=== PATIENT | male | born 1990 | race Caucasian/White ===

== ENCOUNTER 2018-08-23 14:23 | Inpatient (IN) ==
[2018-08-23] MEDS ORDERED: Ketorolac Inj 30 MG/ML (IVP) Vial IV.PUSH ONE (17:01)
[2018-08-23] MEDS ORDERED: Sod Chloride 0.9% Inj 1,000 ML IV.SIG ONE (17:01)
--- NOTE | 2018-08-23 17:04 | ED ---
HPI General Chief complaint: Skin/Abscess/Foreign Body Stated complaint: swollen right jaw Time Seen by Provider: 08/23/18 16:47 Source: patient Mode of arrival: ambulatory Limitations: no limitations History of Present Illness HPI narrative: 28-year-old male presents to the emergency department with complaint of right lower jaw swelling since . He was seen at [facility] on Wednesday and was prescribed penicillin and tramadol for what he was told he had a dental abscess. He says his symptoms have worsened and have not gotten better. Denies vomiting. Reports fever of what he thinks was 101.0 last night. No fever today. Denies sore throat, difficulty swallowing, unusual drooling. Rates pain 10/10. Pain is constant. Has been taking tramadol and Tylenol with no relief of symptoms. No known relieving factors. Denies significant past medical history. Has not seen a dentist. Does not have a dentist. No known allergies. Primary care provider is Dr. Meng. Has no other medical complaints. No other modifying factors or associated signs and symptoms. Related Data Home Medications Medication Instructions Recorded Confirmed No Known Home Medications 08/23/18 08/23/18 Allergies Allergy/AdvReac Type Severity Reaction Status Date / Time No Known Allergies Allergy Verified 08/23/18 14:43 [facility] Medical History Medical History Patient denies medical problems (Acute) Surgical History Surgical History No history of previous surgery (Acute) Social History Social History Substance History: No History of Abuse Smoking Status: Never smoker How Often Do You Have a Drink Containing Alcohol: 2 to 4 times a month Recent Travel in [facility] within the Last 8 Weeks: No Recent Out of Country Travel within the Last 8 Weeks: No Immunization History Tetanus Immunization: Unsure Exam Narrative Exam Narrative: GENERAL: Well-nourished, well-developed male patient, in no acute distress; afebrile, nontoxic-appearing SKIN: Warm and dry. HEAD: Atraumatic. Normocephalic. Right lower mandibular facial edema; without erythema; with tenderness on palpation. No lymphadenopathy. EYES: Pupils equal and round. No scleral icterus. No injection or drainage. ENT: Mucosa pink and moist. No erythema or exudates. No uvular edema. No uvular , palatal, or tonsillar deviation. Airway patent. EARS: Bilateral pinnae and external canals appear within normal limits. Bilateral tympanic membranes without erythema, dullness or perforation. MOUTH: Mucous membranes moist, no lesions, tongue and gums appear normal. Good dentition throughout. Surrounding gingiva is without erythema, edema, drainage. No obvious abscess noted. Positive trismus; patient unable to open jaw completely. NECK: Trachea midline. No lymphadenopathy. CARDIOVASCULAR: Regular rate. RESPIRATORY: No accessory muscle use. GASTROINTESTINAL: Flat. MUSCULOSKELETAL: No obvious deformities. No clubbing. No cyanosis. No edema. NEUROLOGICAL: Awake and alert. Oriented 3. No obvious cranial nerve deficits. Motor grossly within normal limits. Normal speech. PSYCHIATRIC: Appropriate mood and affect; insight and judgment normal. Course Initial Documented Vital Signs Temperature 98.5 F 08/23/18 14:27 Pulse Rate 85 08/23/18 14:27 Respiratory Rate 14 08/23/18 14:27 Blood Pressure 146/97 H 08/23/18 14:27 Pulse Oximetry 98 08/23/18 14:27 Last Documented Vital Signs Temperature 98.5 F 08/23/18 14:27 Pulse Rate 72 08/23/18 19:18 Respiratory Rate 18 08/23/18 19:18 Blood Pressure 131/76 08/23/18 19:18 Pulse Oximetry 100 08/23/18 19:18 Sign Out Sign Out Data: Patient Sign Out occurred on 08/23/18 at 19:06. Patient's care was discussed, and care was transferred from ELAINE Dinero to GREYSON Alvarez. Sign Out Comment: CT neck pending Last updated by Estrella Nieves ARNP at 08/23/18 18:59 Post-Handoff Eval: This patient was signed out to me pending CT imaging. Briefly this is a 28-year -old otherwise healthy male who presents with right-sided facial swelling for 5 days. He was started on penicillin 4 days ago at an outside emergency room and symptoms have persisted. Lab work is unremarkable. CT face reveals a 2.3 cm right-sided mandibular abscess. IV Decadron has been ordered. At this point time the plan is to admit the patient for IV antibiotic therapy. Medical Decision Making MDM Narrative Medical decision making narrative: 28-year-old male with right lower mandibular facial swelling. He was seen at [facility] on Wednesday and was given penicillin and was told he had a dental abscess. His symptoms have worsened. Positive for trismus. Patient discussed with Dr. Crain and plan of care discussed. CBC, BMP, coags, CT soft tissue neck, IV fluid bolus, Toradol, clindamycin 600 mg IV ordered. 1840: CBC, BMP unremarkable. Coags unremarkable. Medical Screen Exam Complete: Yes Emergency Medical Condition: Yes Differential Diagnosis Differential Diagnosis: Dental abscess, abscess of neck, Lab Data Result diagrams: 08/23/18 17:13 08/23/18 17:13 Lab Results 08/23/18 08/23/18 08/23/18 Range/Units 17:13 17:13 17:13 WBC 8.1 (4.0-11.0) th/mm3 RBC 5.78 (4.50-5.90) mil/mm3 Hgb 16.8 (13.0-17.0) gm/dL Hct 49.8 (39.0-51.0) % MCV 86.2 (80.0-100.0) fL MCH 29.0 (27.0-34.0) pg MCHC 33.6 (32.0-36.0) % RDW 13.7 (11.6-17.2) % Plt Count 279 (150-450) th/mm3 MPV 7.3 (7.0-11.0) fL Neut % (Auto) 66.1 (16.0-70.0) % Lymph % (Auto) 24.6 (9.0-44.0) % Trigg % (Auto) 7.5 (0.0-8.0) % Eos % (Auto) 1.1 (0.0-4.0) % Baso % (Auto) 0.7 (0.0-2.0) % Neut # (Auto) 5.3 (1.8-7.7) th/mm3 Lymph # (Auto) 2.0 (1.0-4.8) th/mm3 Trigg # (Auto) 0.6 (0.0-0.9) th/mm3 Eos # (Auto) 0.1 (0.0-0.4) th/mm3 Baso # (Auto) 0.1 (0.0-0.2) th/mm3 WBC Differential . Differential Comment Auto diff final PT 15.5 H (9.8-11.6) sec INR 1.5 Ratio APTT 30.6 H (24.3-30.1) sec Sodium 135 L (136-145) meq/L Potassium 3.8 (3.5-5.1) meq/L Chloride 100 (98-107) meq/L Carbon Dioxide 24.8 (21.0-32.0) meq/L Anion Gap 10 (5-15) meq/L BUN 11 (7-18) mg/dL Creatinine 1.05 (0.60-1.30) mg/dL Estimated GFR 85 L (>89) mL/min Random Glucose 81 (74-106) mg/dL Calcium 9.3 (8.5-10.1) mg/dL Imaging Data Radiologist's impression: Soft Tissue Neck CT 08/23/18 17:01 CONCLUSION: 1. 2.3 cm abscess adjacent to the right mandible associated with extensive dental caries. There is overlying soft tissue swelling and mildly enlarged submandibular lymph node nodes. Discharge Plan Discharge Disposition Patient Disposition: 30 Still Patient Discharge Condition Condition: Stable Discharge Details Diagnosis: Mandibular abscess Physicians Team ED Provider: Jason Crain ED Midlevel Provider: Paul Ventura Primary Care Provider: NON STAFF,PROVIDER Rxs /Orders / Referrals /Forms Prescriptions: No Action No Known Home Medications RF: 0 Discharge Interventions Interventions: Vital Signs Last Done: 08/23/18 19:18 Status ED Status: With Doctor
[2018-08-23] MEDS ORDERED: Clindamycin Inj 600 MG/4 ML Vial IV.SIG ONE (17:40)
[2018-08-23 17:44] LABS: Baso # (Auto) 0.1 th/mm3 (0.0-0.2); Baso % (Auto) 0.7 % (0.0-2.0); Eos # (Auto) 0.1 th/mm3 (0.0-0.4); Eos % (Auto) 1.1 % (0.0-4.0); Hematocrit 49.8 % (39.0-51.0); Hemoglobin 16.8 gm/dL (13.0-17.0); Lymph % (Auto) 24.6 % (9.0-44.0); Mean Corpuscular HGB Conc 33.6 % (32.0-36.0); Mean Corpuscular Volume 86.2 fL (80.0-100.0); Mean Platelet Volume 7.3 fL (7.0-11.0); Mono # (Auto) 0.6 th/mm3 (0.0-0.9); Mono % (Auto) 7.5 % (0.0-8.0); Neut # (Auto) 5.3 th/mm3 (1.8-7.7); Neut % (Auto) 66.1 % (16.0-70.0); Platelet Count 279 th/mm3 (150-450); Red Blood Count 5.78 mil/mm3 (4.50-5.90); Red Cell Distribution Width 13.7 % (11.6-17.2); White Blood Count 8.1 th/mm3 (4.0-11.0)
[2018-08-23 18:00] LABS: Activated Partial Thrombo Time 30.6 sec (24.3-30.1); INR 1.5 Ratio; Prothrombin Time 15.5 sec (9.8-11.6)
[2018-08-23 18:04] LABS: Calcium 9.3 mg/dL (8.5-10.1); Carbon Dioxide 24.8 meq/L (21.0-32.0); Potassium 3.8 meq/L (3.5-5.1)
--- NOTE | 2018-08-23 19:32 | CT ---
EXAM DATE: 08/23/2018 6:10 PM EDT AGE/SEX: 28 years / Male INDICATIONS: Right jaw swelling and pain for four days. CLINICAL DATA: This is the patient's initial encounter. Patient reports that signs and symptoms have been present for 4 - 6 days and indicates a pain score of 10/10. MEDICAL/SURGICAL HISTORY: None. None. RADIATION DOSE: 28.0 CTDI (mGy) COMPARISON: No prior exams available for comparison. TECHNIQUE: Helical acquisition was performed using a multirow detector CT scanner during the adminis tration of 70 ml Omnipaque 350 (iohexol) nonionic water-soluble contrast as a single exam dose. Usi ng automated exposure control and adjustment of the mA and/or kV according to patient size, radiation dose was kept as low as reasonably achievable to obtain optimal diagnostic quality images. DICOM fo rmat image data is available electronically for review and comparison. FINDINGS: There is a rim-enhancing loculated fluid collection adjacent to the right mandible most characteristi c of an abscess with extensive dental caries noted in a posterior right molar. There is an enlarged s ubmandibular lymph node on the right measuring up to 1.4 cm. No airway obstructing lesions or foreign bodies. No soft tissue swelling on the left side of face. Thyroid gland is symmetric. No acute bony abnormalities. Apices are clear. Submandibular and parotid glands are symmetric. Mild mucosal thickening in the maxi llary sinuses. CONCLUSION: 1. 2.3 cm abscess adjacent to the right mandible associated with extensive dental caries. There is o verlying soft tissue swelling and mildly enlarged submandibular lymph node nodes. Electronically signed by: Clark Alejandra MD 08/23/2018 7:30 PM EDT
[2018-08-23] MEDS ORDERED: Dexamethasone Inj 20 MG/5 ML Vial IV.PUSH ONE (19:41)
--- NOTE | 2018-08-23 21:11 | P.HPFP ---
History of Present Illness Primary Care Physician: PROVIDER NON STAFF <Jaylen Roberto - 08/24/18 11:15> PROVIDER NON STAFF <Mayra Fernandez - 08/23/18 21:11> Chief Complaint: Right mandibular abscess <JimAnaMayra B - 08/24/18 01:21> History of Present Illness: 28-year-old otherwise healthy male presents for worsening right-sided jaw pain with swelling that started about 5 days ago. A day after noticing mild jaw discomfort he woke up with severe pain located "between his cheek and his gum" and the inability to open his jaw more than a couple of centimeters. He has had 3 days of intense pain and swelling and notes that the pain extends from the angle of the mandible up into the right forehead and down around the midline of the jaw. He does admit to associated headaches specifically located temporally on the right which she describes as " a lot of pressure."He was seen at [facility] 3 days ago and started on tramadol for pain and amoxicillin 500 mg 3 times daily for antibiotic treatment. He has taken about 8-9 doses of amoxicillin at this time. After starting the amoxicillin he noticed that the swollen area seemed to harden and form a "mass in his cheek". No notable superficial drainage from the skin, however, while in the ED he has noticed an acidic and "nasty taste" in his mouth , which he thinks may be from the abscess draining after the area was palpated by the ED physician. He had a fever of up to 101F yesterday, which resolved on its own. Also notes drenching night sweats for the past couple of days. Denies any trauma to the area, redness or notable drainage. He is able to tolerate p.o. fluids, but he is unable to chew solid food due to the pain when moving his jaw. No nausea, vomiting, difficulty swallowing, airway occlusion, chest pain, shortness of breath, or sore throat. He states that he has a cracked tooth on the right side upper jaw and a "pocket in the gum where the right lower wisdom tooth is popping out". No recent dental work. No known dental caries at this time. Of note, patient was recently seen in the ED about 3 weeks ago for severe abdominal pain for which she was diagnosed with diverticulitis. He was discharged the same day after receiving IV fluids and given to antibiotics by mouth. He has been asymptomatic for the past couple of weeks. Past medical history: Only diagnosed with diverticulitis, single episode. Family history: Noncontributory. Social: Non-smoker Occasional social EtOH No drug use <Mayra Fernandez 08/24/18 01:55> - Diagnosis (1) Mandibular abscess (2) Facial cellulitis (3) Nutrition, metabolism, and development symptoms (4) DVT prophylaxis <Jaylen Roberto 08/24/18 11:15> (1) Mandibular abscess (2) Facial cellulitis (3) Nutrition, metabolism, and development symptoms (4) DVT prophylaxis <JimMayra Barajas 08/24/18 05:04> Review of Systems Constitutional: Reports night sweats (For the past 1-2 days.), Denies chills, Denies fever(s) <JimMayra Barajas 08/24/18 01:06> Eyes: Denies blurry vision, Denies change in vision, Denies discharge <Mayra Fernandez 08/24/18 01:06> Ears, Nose, Mouth, and Throat: Reports mouth pain (And jaw pain.), Denies abnormal hearing, Denies dental pain, Denies difficulty swallowing, Denies lip swelling, Denies pain with swallowing, Denies sinus pain, Denies sore throat < Mayra Fernandez 08/24/18 01:06> Cardiovascular: Denies chest pain, Denies leg swelling, Denies shortness of breath <JimMayra Barajas 08/24/18 01:06> Respiratory: Denies cough, Denies wheezing <JimMayra Barajas 08/24/18 01:06> Gastrointestinal: Denies abdominal pain, Denies loose stools, Denies nausea, Denies vomiting <JimMayra Barajas 08/24/18 01:06> PMFSH - History History Provided By: Patient <Ana Fernandezjarred Barajas 08/23/18 21:11> - Medical / Surgical Hx Neg / Unobtainable Surgical History: No Previous Surgery <JimMayra B 08/24/18 01:06> - Medical History Medical History: Medical History (Last Updated 08/23/18 @ 15:50 by Becky Gan) Patient denies medical problems <Jaylen Roberto 08/24/18 11:15> Medical History (Last Updated 08/23/18 @ 15:50 by Becky Gan) Patient denies medical problems <Mayra Fernandez 08/23/18 21:11> - Surgical History Surgical History: Surgical History (Last Updated 08/23/18 @ 15:50 by Becky Gan) No history of previous surgery <Jaylen Roberto 08/24/18 11:15> Surgical History (Last Updated 08/23/18 @ 15:50 by Becky Gan) No history of previous surgery <Mayra Fernandez 08/23/18 21:11> - Family History Family History: Family History (Last Updated 08/24/18 @ 00:29 by Mayra Fernandez DO, R1) Other Family history non-contributory <Jaylen Roberto 08/24/18 11:15> Family History (Last Updated 08/24/18 @ 00:29 by Mayra Fernandez DO, R1) Other Family history non-contributory <Mayra Fernandez 08/24/18 01:06> - Social History I have reviewed the patient's Social History: Yes <Mayra Fernandez 08/24/18 01:06> - Tobacco History Smoking Status: Never smoker <Mayra Fernandez 08/23/18 21:11> - Alcohol History How Often Do You Have a Drink Containing Alcohol: 2 to 4 times a month <Mayra Fernandez 08/23/18 21:11> - Substance Use History Substance History: No History of Abuse <Mayra Fernandez 08/23/18 21:11> - Travel History Recent Travel in the [facility] Within the Last 8 Weeks: No <Mayra Fernandez 21:11> Recent Travel Out of the Country Within the Last 8 Weeks: No <Mayra Fernandez 08/23/18 21:11> - Immunization History Tetanus Immunization: Unsure <Mayra Fernandez 08/23/18 21:11> Medications and Allergies Allergies Allergy/AdvReac Type Severity Reaction Status Date / Time No Known Allergies Allergy Verified 08/23/18 14:43 <Jaylen Roberto 08/24/18 11:15> Home Medications Medication Instructions Recorded Confirmed Type No Known Home Medications 08/23/18 08/23/18 History <Jaylen Roberto 08/24/18 11:15> Active Medications: Active Medications Acetaminophen (Tylenol) 650 mg PO Q4H PRN PRN Reason: Temp > 100.4 Ampicillin Sodium/Sulbactam (Sodium 3 gm/ Sodium Chloride) 100 mls @ 200 mls/ hr IV.SIG Q6HR FRANCINE Last Infusion: 08/24/18 06:48 Dose: Infused Ketorolac Tromethamine (Toradol Inj) 30 mg IV.PUSH Q6H PRN PRN Reason: pain 1-10 Stop: 08/29/18 00:21 Ondansetron HCl (Zofran Inj) 4 mg IV.PUSH Q6H PRN PRN Reason: NAUSEA OR VOMITING <Jaylen Roberto 08/24/18 11:15> Exam Vital signs: Vital Signs 08/23/18 14:27 08/23/18 19:18 08/24/18 00:00 Temperature 98.5 F 98.5 F Pulse Rate 85 72 69 Respiratory Rate 14 18 19 Blood Pressure 146/97 H 131/76 116/67 Pulse Oximetry 98 100 93 L 08/24/18 02:18 08/24/18 04:00 08/24/18 07:54 Temperature 97.4 F L 97.6 F Pulse Rate 76 62 Respiratory Rate 15 20 20 Blood Pressure 122/68 Pulse Oximetry 98 96 Intake & Output 08/23/18 08/24/18 08/24/18 18:59 06:59 18:59 Intake Total 1000 / 1000 200 / 200 857 / 857 Output Total 480 / 480 Balance 1000 / 1000 -280 / -280 857 / 857 Weight 99.79 kg 99.79 kg Intake: IV 1000 / 1000 200 / 200 Unasyn Inj 3 GM In NS Inj 100 200 / 200 ML @ 200 mls/hr IV.SIG Q6HR FRANCINE Rx#:[id number] NS Inj 1,000 ML @ Wide Open IV. 1000 / 1000 SIG BOLUS ONE Rx#:[id number] Oral 857 / 857 Output: Urine 480 / 480 Other: # Voids 2 Weight On Admission 99.79 kg <Jaylen Roberto 08/24/18 11:15> Vital Signs 08/23/18 14:27 08/23/18 19:18 Temperature 98.5 F Pulse Rate 85 72 Respiratory Rate 14 18 Blood Pressure 146/97 H 131/76 Pulse Oximetry 98 100 Intake & Output 08/23/18 08/23/18 08/24/18 06:59 18:59 06:59 Intake Total 1000 / 1000 Balance 1000 / 1000 Weight 99.79 kg Intake: IV 1000 / 1000 NS Inj 1,000 ML @ Wide Open IV. 1000 / 1000 SIG BOLUS ONE Rx#:[id number] <JimMayra Barajas - 08/23/18 21:11> Narrative: GENERAL: 28-year-old male sitting comfortably in bed. In no acute distress. SKIN: Warm and dry. Intact. No obvious erythema. HEAD: Atraumatic. Normocephalic. Moderate swelling of right jaw at the angle of the mandible extending to mid cheek, with significant tenderness on light palpation. Area of induration at angle of mandible approximately 3 cm in diameter. No superficial erythema of the skin. No obvious drainage from face or within mouth. No obvious dental caries on examination, however, patient unable to mouth more than a couple centimeters due to pain. EYES: Pupils equal and round. No scleral icterus. No injection or drainage. ENT: Mucous membranes pink and moist. CARDIOVASCULAR: Regular rate and rhythm. RESPIRATORY: No accessory muscle use. Clear to auscultation. Breath sounds equal bilaterally. GASTROINTESTINAL: Abdomen soft, non-tender, nondistended. MUSCULOSKELETAL: Extremities without clubbing, cyanosis, or edema. No obvious deformities. No calf tenderness. Posterior tibialis pulses intact. NEUROLOGICAL: Awake and alert. No obvious cranial nerve deficits. Motor grossly within normal limits. Normal speech. PSYCHIATRIC: Appropriate mood and affect; insight and judgment normal. <Mayra Fernandez - 08/24/18 01:06> Results - Labs Result diagrams: 08/24/18 03:50 08/24/18 04:20 <Jaylen Roberto - 08/24/18 11:15> Abnormal lab results 08/23/18 08/23/18 08/24/18 Range/Units 17:13 17:13 03:50 Neut % (Auto) 87.5 H (16.0-70.0) % Lymph # (Auto) 0.7 L (1.0-4.8) th/mm3 PT 15.5 H (9.8-11.6) sec APTT 30.6 H (24.3-30.1) sec Sodium 135 L (136-145) meq/L Estimated GFR 85 L (>89) mL/min Random Glucose (74-106) mg/dL Total Bilirubin (0.2-1.0) mg/dL AST (15-37) U/L Alkaline Phosphatase (45-117) U/L 08/24/18 Range/Units 04:20 Neut % (Auto) (16.0-70.0) % Lymph # (Auto) (1.0-4.8) th/mm3 PT (9.8-11.6) sec APTT (24.3-30.1) sec Sodium 135 L (136-145) meq/L Estimated GFR (>89) mL/min Random Glucose 134 H (74-106) mg/dL Total Bilirubin 1.4 H (0.2-1.0) mg/dL AST 14 L (15-37) U/L Alkaline Phosphatase 129 H (45-117) U/L Short CBC 08/23/18 08/24/18 Range/Units 17:13 03:50 WBC 8.1 6.7 (4.0-11.0) th/mm3 Hgb 16.8 16.6 (13.0-17.0) gm/dL Hct 49.8 49.1 (39.0-51.0) % Plt Count 279 289 (150-450) th/mm3 BMP 08/23/18 08/24/18 17:13 04:20 Sodium 135 L 135 L Potassium 3.8 4.4 Chloride 100 103 Carbon Dioxide 24.8 22.8 BUN 11 13 Creatinine 1.05 0.89 Calcium 9.3 8.5 D Liver Function 08/24/18 Range/Units 04:20 Total Bilirubin 1.4 H (0.2-1.0) mg/dL AST 14 L (15-37) U/L ALT 25 (12-78) U/L Alkaline Phosphatase 129 H (45-117) U/L Albumin 3.5 (3.4-5.0) g/dL <Jaylen Roberto - 08/24/18 11:15> Abnormal lab results 08/23/18 08/23/18 Range/Units 17:13 17:13 PT 15.5 H (9.8-11.6) sec APTT 30.6 H (24.3-30.1) sec Sodium 135 L (136-145) meq/L Estimated GFR 85 L (>89) mL/min Short CBC 08/23/18 Range/Units 17:13 WBC 8.1 (4.0-11.0) th/mm3 Hgb 16.8 (13.0-17.0) gm/dL Hct 49.8 (39.0-51.0) % Plt Count 279 (150-450) th/mm3 BMP 08/23/18 17:13 Sodium 135 L Potassium 3.8 Chloride 100 Carbon Dioxide 24.8 BUN 11 Creatinine 1.05 Calcium 9.3 <Mayra Fernandez - 08/23/18 21:11> - Imaging Impressions Soft Tissue Neck CT 08/23/18 17:01 CONCLUSION: 1. 2.3 cm abscess adjacent to the right mandible associated with extensive dental caries. There is overlying soft tissue swelling and mildly enlarged submandibular lymph node nodes. <Jaylen Roberto - 08/24/18 11:15> Impressions Soft Tissue Neck CT 08/23/18 17:01 CONCLUSION: 1. 2.3 cm abscess adjacent to the right mandible associated with extensive dental caries. There is overlying soft tissue swelling and mildly enlarged submandibular lymph node nodes. <Mayra Fernandez - 08/23/18 21:11> Caprini VTE Risk Assessment Caprini VTE Risk Assessment: No/Low Risk (score <= 1) <Mayra Fernandez 08/24 05:04> Caprini Risk Assessment Model: Point Value = 1 Point Value = 2 Point Value = 3 Point Value = 5 Age 41-60 Minor surgery BMI > 25 kg/m2 Swollen legs Varicose veins or History of unexplained or recurrent spontaneous Oral contraceptives or hormone replacement Sepsis (< 1 month) Serious lung disease, including pneumonia (< 1 month) Abnormal pulmonary function Acute myocardial infarction Congestive heart failure (< 1 month) History of inflammatory bowel disease Medical patient at bed rest Age 61-74 Arthroscopic surgery Major open surgery (> 45 min) Laparoscopic surgery (> 45 min) Malignancy Confined to bed (> 72 hours) Immobilizing plaster cast Central venous access Age >= 75 History of VTE Family history of VTE Factor V Leiden Prothrombin [id number] Lupus anticoagulant Anticardiolipin antibodies Elevated serum homocysteine Heparin-induced thrombocytopenia Other congenital or acquired thrombophilia Stroke (< 1 month) Elective arthroplasty Hip, pelvis, or leg fracture Acute spinal cord injury (< 1 month) <Jaylen Roberto - 08/24/18 11:15> Point Value = 1 Point Value = 2 Point Value = 3 Point Value = 5 Age 41-60 Minor surgery BMI > 25 kg/m2 Swollen legs Varicose veins or History of unexplained or recurrent spontaneous Oral contraceptives or hormone replacement Sepsis (< 1 month) Serious lung disease, including pneumonia (< 1 month) Abnormal pulmonary function Acute myocardial infarction Congestive heart failure (< 1 month) History of inflammatory bowel disease Medical patient at bed rest Age 61-74 Arthroscopic surgery Major open surgery (> 45 min) Laparoscopic surgery (> 45 min) Malignancy Confined to bed (> 72 hours) Immobilizing plaster cast Central venous access Age >= 75 History of VTE Family history of VTE Factor V Leiden Prothrombin [id number] Lupus anticoagulant Anticardiolipin antibodies Elevated serum homocysteine Heparin-induced thrombocytopenia Other congenital or acquired thrombophilia Stroke (< 1 month) Elective arthroplasty Hip, pelvis, or leg fracture Acute spinal cord injury (< 1 month) <Mayra Fernandez - 08/23/18 21:11> Prophylaxis Regimen: Total Risk Factor Score Risk Level Prophylaxis Regimen 0-1 Low Early ambulation 2 Moderate Order ONE of the following: *Sequential Compression Device (SCD) *Heparin 5000 units SQ BID 3-4 Higher Order ONE of the following medications: *Heparin 5000 units SQ TID *Enoxaparin/Lovenox 40 mg SQ daily (WT < 150 kg, CrCl > 30 mL/min) *Enoxaparin/Lovenox 30 mg SQ daily (WT < 150 kg, CrCl > 10-29 mL/min) *Enoxaparin/Lovenox 30 mg SQ BID (WT < 150 kg, CrCl > 30 mL/min) AND/OR *Sequential Compression Device (SCD) 5 or more Highest Order ONE of the following medications: *Heparin 5000 units SQ TID (Preferred with Epidurals) *Enoxaparin/Lovenox 40 mg SQ daily (WT < 150 kg, CrCl > 30 mL/min) *Enoxaparin/Lovenox 30 mg SQ daily (WT < 150 kg, CrCl > 10-29 mL/min) *Enoxaparin/Lovenox 30 mg SQ BID (WT < 150 kg, CrCl > 30 mL/min) AND *Sequential Compression Device (SCD) <Jaylen Roberto - 08/24/18 11:15> Total Risk Factor Score Risk Level Prophylaxis Regimen 0-1 Low Early ambulation 2 Moderate Order ONE of the following: *Sequential Compression Device (SCD) *Heparin 5000 units SQ BID 3-4 Higher Order ONE of the following medications: *Heparin 5000 units SQ TID *Enoxaparin/Lovenox 40 mg SQ daily (WT < 150 kg, CrCl > 30 mL/min) *Enoxaparin/Lovenox 30 mg SQ daily (WT < 150 kg, CrCl > 10-29 mL/min) *Enoxaparin/Lovenox 30 mg SQ BID (WT < 150 kg, CrCl > 30 mL/min) AND/OR *Sequential Compression Device (SCD) 5 or more Highest Order ONE of the following medications: *Heparin 5000 units SQ TID (Preferred with Epidurals) *Enoxaparin/Lovenox 40 mg SQ daily (WT < 150 kg, CrCl > 30 mL/min) *Enoxaparin/Lovenox 30 mg SQ daily (WT < 150 kg, CrCl > 10-29 mL/min) *Enoxaparin/Lovenox 30 mg SQ BID (WT < 150 kg, CrCl > 30 mL/min) AND *Sequential Compression Device (SCD) <Mayra Fernandez - 08/23/18 21:11> Assessment and Plan - Assessment (1) Mandibular abscess Code(s): M27.2 - Inflammatory conditions of jaws Status: Acute (2) Facial cellulitis Code(s): L03.211 - Cellulitis of face Status: Acute (3) Nutrition, metabolism, and development symptoms Code(s): R63.8 - Other symptoms and signs concerning food and fluid intake Status: Acute (4) DVT prophylaxis Status: Acute <Jaylen Roberto - 08/24/18 11:15> (1) Mandibular abscess Code(s): M27.2 - Inflammatory conditions of jaws Status: Acute Plan: Patient diagnosed with facial abscess with right sided mandibular abscess formation diagnosed by CT which showed "2.3 cm abscess adjacent to the right mandible associated with extensive dental caries with overlying soft tissue swelling and mildly enlarged submandibular lymph nodes. Patient started outpatient antibiotic treatment with amoxicillin that was started 3 days ago. He has taken about 10-11 doses of amoxicillin without significant improvement. Started on IV Clindamycin in ED. Will switch to Unasyn q6hr. Toradol given in ED with significant relief of pain. Will continue Toradol 30mg IV PRN for pain. CBC and CMP were within normal limits. Awaiting Blood cultures. ED physician and placed a call out to Dr. Gonsalves for possible I&D of the abscess. However he is not available until next week. We will continue IV antibiotics at this time and consider outpatient referral to Dr. Gonsalves's office for I&D in outpatient setting. Due to multiple dental caries noted on CT, recommend outpatient dental appointment. (2) Facial cellulitis Code(s): L03.211 - Cellulitis of face Status: Acute Plan: See plan above for mandibular abscess (3) Nutrition, metabolism, and development symptoms Code(s): R63.8 - Other symptoms and signs concerning food and fluid intake Status: Acute Plan: Fluid: Patient able to tolerate PO. Electrolytes: Electrolytes within normal limits. Will continue to monitor and replete as necessary. Nutrition: Patient able to tolerate p.o. fluids, however, unable to chew due to jaw pain. No difficulty swallowing. Will place on liquid diet as tolerated. (4) DVT prophylaxis Status: Acute Plan: Patient low risk for DVT. Patient up ad nain. <Mayra Fernandez - 08/24/18 05:04> - Attending Attestation The exam, history, and the medical decision-making described in the above note were completed with the assistance of the resident physician. I reviewed and agree with the findings presented. I attest that I had a [id number] encounter with the patient on the same day, and personally performed and documented my assessment and findings in the medical record. <Jaylen Roberto - 08/24/18 11:15>
[2018-08-23] MEDS ORDERED: Acetaminophen 325 MG Tablet PO PRN (21:35)
[2018-08-24] MEDS: Ampicillin/Sulbactam Inj 3 GM in Sodium Chloride 0.9% Inj 100 ML IV.SIG SCH ×4 (01:23→16:59)
[2018-08-24 04:29] LABS: Baso % (Auto) 0.3 % (0.0-2.0); Eos % (Auto) 0.1 % (0.0-4.0); Hematocrit 49.1 % (39.0-51.0); Hemoglobin 16.6 gm/dL (13.0-17.0); Lymph # (Auto) 0.7 th/mm3 (1.0-4.8); Mean Corpuscular HGB Conc 33.8 % (32.0-36.0); Mean Corpuscular Hemoglobin 28.8 pg (27.0-34.0); Mean Corpuscular Volume 85.2 fL (80.0-100.0); Mean Platelet Volume 7.4 fL (7.0-11.0); Mono # (Auto) 0.1 th/mm3 (0.0-0.9); Mono % (Auto) 1.1 % (0.0-8.0); Neut # (Auto) 5.9 th/mm3 (1.8-7.7); Neut % (Auto) 87.5 % (16.0-70.0); Platelet Count 289 th/mm3 (150-450); Red Blood Count 5.77 mil/mm3 (4.50-5.90); Red Cell Distribution Width 13.7 % (11.6-17.2); White Blood Count 6.7 th/mm3 (4.0-11.0)
[2018-08-24 05:11] LABS: Alanine Aminotransferase 25 U/L (12-78); Albumin 3.5 g/dL (3.4-5.0); Alkaline Phosphatase 129 U/L (45-117); Anion Gap 9 meq/L (5-15); Aspartate Aminotransferase 14 U/L (15-37); Blood Urea Nitrogen 13 mg/dL (7-18); Calcium 8.5 mg/dL (8.5-10.1); Carbon Dioxide 22.8 meq/L (21.0-32.0); Chloride 103 meq/L (98-107); Glomerular Filtration Rate Greater Than 89 mL/min (>89); Glucose,Random 134 mg/dL (74-106); Potassium 4.4 meq/L (3.5-5.1); Sodium 135 meq/L (136-145); Total Protein 7.9 g/dL (6.4-8.2)
--- NOTE | 2018-08-24 11:14 | P.HPFP ---
History of Present Illness Primary Care Physician: PROVIDER NON STAFF Chief Complaint: Right mandibular abscess History of Present Illness: Patient seen on rounds this morning with resident medical team. He states that his jaw pain and swelling has gotten much better throughout the night and he is able to open his mouth wider and eat without significant pain. He continues to feel a "hard lump" along the right jaw/mandible line. He denies fevers or chills, he denies difficulty with swallowing, he denies chest pain or shortness of breath. In summary, this is a 28-year-old male presenting with right-sided jaw pain and swelling for approximately 5 days prior to presentation. He was seen at [facility] 3 days prior to presentation was given tramadol and amoxicillin without improvement of his symptoms. The swelling and pain continued to increase and he presented to the emergency department at [place] where a CT scan of his jaw shows a 2.3 cm abscess adjacent to the right mandible associated with extensive dental caries. He was started on IV Unasyn and treated with Toradol for his pain - Diagnosis (1) Mandibular abscess (2) Facial cellulitis (3) Nutrition, metabolism, and development symptoms (4) DVT prophylaxis PMFSH - History History Provided By: Patient - Medical History Medical History: Medical History (Last Updated 08/23/18 @ 15:50 by Becky Gan) Patient denies medical problems - Surgical History Surgical History: Surgical History (Last Updated 08/23/18 @ 15:50 by Becky Gan) No history of previous surgery - Family History Family History: Family History (Last Updated 08/24/18 @ 00:29 by Mayra Fernandez DO, R1) Other Family history non-contributory - Tobacco History Second Hand Smoke Exposure: No Tobacco Use In Past 30 Days: No Smoking Status: Never smoker - Alcohol History How Often Do You Have a Drink Containing Alcohol: 2 to 4 times a month - Substance Use History Substance History: No History of Abuse - Travel History Recent Travel in the [place] Within the Last 8 Weeks: No Recent Travel Out of the Country Within the Last 8 Weeks: No - Immunization History Tetanus Immunization: Unsure Medications and Allergies Active Medications: Active Medications Acetaminophen (Tylenol) 650 mg PO Q4H PRN PRN Reason: Temp > 100.4 Ampicillin Sodium/Sulbactam (Sodium 3 gm/ Sodium Chloride) 100 mls @ 200 mls/ hr IV.SIG Q6HR [facility]ANCINE Last Infusion: 08/24/18 06:48 Dose: Infused Ketorolac Tromethamine (Toradol Inj) 30 mg IV.PUSH Q6H PRN PRN Reason: pain 1-10 Stop: 08/29/18 00:21 Ondansetron HCl (Zofran Inj) 4 mg IV.PUSH Q6H PRN PRN Reason: NAUSEA OR VOMITING Allergies Allergy/AdvReac Type Severity Reaction Status Date / Time No Known Allergies Allergy Verified 08/23/18 14:43 Home Medications Medication Instructions Recorded Confirmed Type No Known Home Medications 08/23/18 08/23/18 History Exam Vital signs: Vital Signs 08/23/18 14:27 08/23/18 19:18 08/24/18 00:00 Temperature 98.5 F 98.5 F Pulse Rate 85 72 69 Respiratory Rate 14 18 19 Blood Pressure 146/97 H 131/76 116/67 Pulse Oximetry 98 100 93 L 08/24/18 02:18 08/24/18 04:00 08/24/18 07:54 Temperature 97.4 F L 97.6 F Pulse Rate 76 62 Respiratory Rate 15 20 20 Blood Pressure 122/68 Pulse Oximetry 98 96 Intake & Output 08/23/18 08/24/18 08/24/18 18:59 06:59 18:59 Intake Total 1000 / 1000 200 / 200 857 / 857 Output Total 480 / 480 Balance 1000 / 1000 -280 / -280 857 / 857 Weight 99.79 kg 99.79 kg Intake: IV 1000 / 1000 200 / 200 Unasyn Inj 3 GM In NS Inj 100 200 / 200 ML @ 200 mls/hr IV.SIG Q6HR [facility] Rx#:[id number] NS Inj 1,000 ML @ Wide Open IV. 1000 / 1000 SIG BOLUS ONE Rx#:[id number] Oral 857 / 857 Output: Urine 480 / 480 Other: # Voids 2 Weight On Admission 99.79 kg Narrative: GENERAL: Healthy-appearing young male sitting in bed in no obvious distress. SKIN: Warm and dry. Intact. No obvious erythema. HEAD: Swelling along the right angle of the mandible with approximately 3 cm area of induration. No obvious erythema or soft tissue swelling. Oral exam shows impacted right rear molar without evidence of erythema or fluctuance. No obvious drainage intraoral. No tonsillar erythema or exudates. No uvular erythema or swelling. ENT: Mucous membranes pink and moist. CARDIOVASCULAR: Regular rate and rhythm. RESPIRATORY: No accessory muscle use. Clear to auscultation. Breath sounds equal bilaterally. PSYCHIATRIC: Appropriate mood and affect; insight and judgment normal. Results - Labs Result diagrams: 08/24/18 03:50 08/24/18 04:20 Abnormal lab results 08/23/18 08/23/18 08/24/18 Range/Units 17:13 17:13 03:50 Neut % (Auto) 87.5 H (16.0-70.0) % Lymph # (Auto) 0.7 L (1.0-4.8) th/mm3 PT 15.5 H (9.8-11.6) sec APTT 30.6 H (24.3-30.1) sec Sodium 135 L (136-145) meq/L Estimated GFR 85 L (>89) mL/min Random Glucose (74-106) mg/dL Total Bilirubin (0.2-1.0) mg/dL AST (15-37) U/L Alkaline Phosphatase (45-117) U/L 08/24/18 Range/Units 04:20 Neut % (Auto) (16.0-70.0) % Lymph # (Auto) (1.0-4.8) th/mm3 PT (9.8-11.6) sec APTT (24.3-30.1) sec Sodium 135 L (136-145) meq/L Estimated GFR (>89) mL/min Random Glucose 134 H (74-106) mg/dL Total Bilirubin 1.4 H (0.2-1.0) mg/dL AST 14 L (15-37) U/L Alkaline Phosphatase 129 H (45-117) U/L Short CBC 08/23/18 08/24/18 Range/Units 17:13 03:50 WBC 8.1 6.7 (4.0-11.0) th/mm3 Hgb 16.8 16.6 (13.0-17.0) gm/dL Hct 49.8 49.1 (39.0-51.0) % Plt Count 279 289 (150-450) th/mm3 BMP 08/23/18 08/24/18 17:13 04:20 Sodium 135 L 135 L Potassium 3.8 4.4 Chloride 100 103 Carbon Dioxide 24.8 22.8 BUN 11 13 Creatinine 1.05 0.89 Calcium 9.3 8.5 D Liver Function 08/24/18 Range/Units 04:20 Total Bilirubin 1.4 H (0.2-1.0) mg/dL AST 14 L (15-37) U/L ALT 25 (12-78) U/L Alkaline Phosphatase 129 H (45-117) U/L Albumin 3.5 (3.4-5.0) g/dL - Imaging Impressions Soft Tissue Neck CT 08/23/18 17:01 CONCLUSION: 1. 2.3 cm abscess adjacent to the right mandible associated with extensive dental caries. There is overlying soft tissue swelling and mildly enlarged submandibular lymph node nodes. Caprini VTE Risk Assessment Caprini VTE Risk Assessment: No/Low Risk (score <= 1) Caprini Risk Assessment Model: Point Value = 1 Point Value = 2 Point Value = 3 Point Value = 5 Age 41-60 Minor surgery BMI > 25 kg/m2 Swollen legs Varicose veins or History of unexplained or recurrent spontaneous Oral contraceptives or hormone replacement Sepsis (< 1 month) Serious lung disease, including pneumonia (< 1 month) Abnormal pulmonary function Acute myocardial infarction Congestive heart failure (< 1 month) History of inflammatory bowel disease Medical patient at bed rest Age 61-74 Arthroscopic surgery Major open surgery (> 45 min) Laparoscopic surgery (> 45 min) Malignancy Confined to bed (> 72 hours) Immobilizing plaster cast Central venous access Age >= 75 History of VTE Family history of VTE Factor V Leiden Prothrombin [id number] Lupus anticoagulant Anticardiolipin antibodies Elevated serum homocysteine Heparin-induced thrombocytopenia Other congenital or acquired thrombophilia Stroke (< 1 month) Elective arthroplasty Hip, pelvis, or leg fracture Acute spinal cord injury (< 1 month) Prophylaxis Regimen: Total Risk Factor Score Risk Level Prophylaxis Regimen 0-1 Low Early ambulation 2 Moderate Order ONE of the following: *Sequential Compression Device (SCD) *Heparin 5000 units SQ BID 3-4 Higher Order ONE of the following medications: *Heparin 5000 units SQ TID *Enoxaparin/Lovenox 40 mg SQ daily (WT < 150 kg, CrCl > 30 mL/min) *Enoxaparin/Lovenox 30 mg SQ daily (WT < 150 kg, CrCl > 10-29 mL/min) *Enoxaparin/Lovenox 30 mg SQ BID (WT < 150 kg, CrCl > 30 mL/min) AND/OR *Sequential Compression Device (SCD) 5 or more Highest Order ONE of the following medications: *Heparin 5000 units SQ TID (Preferred with Epidurals) *Enoxaparin/Lovenox 40 mg SQ daily (WT < 150 kg, CrCl > 30 mL/min) *Enoxaparin/Lovenox 30 mg SQ daily (WT < 150 kg, CrCl > 10-29 mL/min) *Enoxaparin/Lovenox 30 mg SQ BID (WT < 150 kg, CrCl > 30 mL/min) AND *Sequential Compression Device (SCD) Assessment and Plan - Assessment (1) Mandibular abscess Code(s): M27.2 - Inflammatory conditions of jaws Status: Acute Plan: Failed outpatient antibiotics with penicillin prior to presentation to the hospital IV antibiotics: Unasyn 3 g IV every 6 hours -Received clindamycin x1 in the emergency department Plastic surgery consulted as oral maxillofacial is not available until next week -Possible I&D of mandibular abscess Continue Toradol as needed for pain control Blood cultures were not performed as patient was on outpatient antibiotics and had received antibiotics in the emergency department (2) Facial cellulitis Code(s): L03.211 - Cellulitis of face Status: Acute Plan: Cellulitis improving on IV antibiotics (3) Nutrition, metabolism, and development symptoms Code(s): R63.8 - Other symptoms and signs concerning food and fluid intake Status: Acute Plan: Fluid: Patient able to tolerate PO. Electrolytes: Electrolytes within normal limits. Will continue to monitor and replete as necessary. Nutrition: Advance diet as tolerated with pain (4) DVT prophylaxis Status: Acute Plan: Patient low risk for DVT. Patient up ad nain. H&P: Quality - VTE Deep Vein Thrombosis/Pulmonary Embolism Present on Admission: No
--- NOTE | 2018-08-24 12:50 | US ---
EXAM DATE: 08/24/2018 12:00 AM EDT AGE/SEX: 28 years / Male INDICATIONS: Right mandibular swelling. Abscess seen on CT. CLINICAL DATA: This is the patient's initial encounter. Patient reports that signs and symptoms have been present for 1 week and indicates a pain score of 2/10. MEDICAL/SURGICAL HISTORY: . Fever. Right jaw swelling. None. COMPARISON: [facility] [place], CT SOFT TISSUE NECK W CONTRAST, 08/23/2018. . FINDINGS: There is a hypoechoic fluid collection adjacent to the mandible on the right measuring 3.1 x 2.9 x 1. 5 cm. This corresponds to the patient's known abscess. CONCLUSION: 1. Right perimandibular fluid collection corresponding to the abscess noted on recent CT. Electronically signed by: Shayne Perez MD 08/24/2018 12:49 PM EDT
[2018-08-24] MEDS: Ketorolac Inj 30 MG/ML (IVP) Vial IV.PUSH PRN (16:56)
[2018-08-24] MEDS: Famotidine 20 MG Tablet PO SCH (20:41)
[2018-08-25] MEDS: Ampicillin/Sulbactam Inj 3 GM in Sodium Chloride 0.9% Inj 100 ML IV.SIG SCH ×4 (00:48→18:50)
[2018-08-25] MEDS: Famotidine 20 MG Tablet PO SCH ×2 (08:53→20:34)
[2018-08-25] MEDS: Ketorolac Inj 30 MG/ML (IVP) Vial IV.PUSH PRN (08:56)
[2018-08-25] MEDS ORDERED: Lidocaine PF 1% Inj 5 ML Vial ONE (11:29)
--- NOTE | 2018-08-25 13:05 | P.PNFP ---
Subjective Interval history: Doing well, is s/p I&D by IR. No pain, has an appetite and feels like he wants to eat. No drainage or bleeding at site, tenderness has improved. <Simran Hawthorne N - 08/25/18 13:05> Results - Labs Result diagrams: 08/24/18 03:50 08/24/18 04:20 <Jaylen Roberto - 08/25/18 21:55> - Imaging Impressions Needle Aspiration US 08/25/18 00:00 CONCLUSION: Uncomplicated ultrasound-guided right jaw abscess aspiration as described. The fluid was sent for requested evaluation. <Jaylen Roberto - 08/25/18 21:55> Physical Exam Vital signs: Vital Signs 08/24/18 23:30 08/25/18 04:00 08/25/18 08:00 Temperature 97.7 F 97.6 F 98.1 F Pulse Rate 68 62 63 Respiratory Rate 18 18 16 Blood Pressure 112/60 118/63 115/78 Pulse Oximetry 96 93 L 96 08/25/18 10:33 08/25/18 11:05 08/25/18 11:23 Temperature 98.6 F 98.6 F 98.4 F Pulse Rate 72 72 62 Respiratory Rate 16 16 16 Blood Pressure 137/79 127/76 131/69 Pulse Oximetry 100 98 97 08/25/18 15:49 08/25/18 20:00 Temperature 98.2 F 98.6 F Pulse Rate 69 74 Respiratory Rate 16 18 Blood Pressure 122/68 128/68 Pulse Oximetry 96 98 Intake & Output 08/25/18 08/25/18 08/26/18 06:59 18:59 06:59 Intake Total 200 / 200 100 / 100 100 / 100 Balance 200 / 200 100 / 100 100 / 100 Weight 99.79 kg Intake: IV 200 / 200 100 / 100 100 / 100 Unasyn Inj 3 GM In NS Inj 100 200 / 200 100 / 100 100 / 100 ML @ 200 mls/hr IV.SIG Q6HR [facility] Rx#:[id number] Other: # Voids 2 Date of Last Bowel Movement 08/18/18 <Jaylen Roberto - 08/25/18 21:55> Vital Signs 08/24/18 16:51 08/24/18 17:26 08/24/18 17:36 Temperature 98.5 F Pulse Rate 70 Respiratory Rate 20 18 Blood Pressure 115/72 Pulse Oximetry 98 98 08/24/18 20:00 08/24/18 23:30 08/25/18 04:00 Temperature 98.0 F 97.7 F 97.6 F Pulse Rate 74 68 62 Respiratory Rate 19 18 18 Blood Pressure 114/67 112/60 118/63 Pulse Oximetry 95 96 93 L 08/25/18 08:00 08/25/18 10:33 08/25/18 11:05 Temperature 98.1 F 98.6 F 98.6 F Pulse Rate 63 72 72 Respiratory Rate 16 16 16 Blood Pressure 115/78 137/79 127/76 Pulse Oximetry 96 100 98 08/25/18 11:23 Temperature 98.4 F Pulse Rate 62 Respiratory Rate 16 Blood Pressure 131/69 Pulse Oximetry 97 Intake & Output 08/24/18 08/25/18 08/25/18 18:59 06:59 18:59 Intake Total 1445 / 1445 200 / 200 Balance 1445 / 1445 200 / 200 Weight 99.79 kg Intake: IV 200 / 200 200 / 200 Unasyn Inj 3 GM In NS Inj 100 200 / 200 200 / 200 ML @ 200 mls/hr IV.SIG Q6HR [facility] Rx#:[id number] Oral 1245 / 1245 Other: # Voids 3 2 <Simran Hawthorne - 08/25/18 13:05> Narrative: GENERAL: Healthy-appearing young male sitting in bed in no obvious distress. SKIN: Warm and dry. Intact. No obvious erythema. HEAD: 4-6 cm of firmness under the skin, bandage overlaying right mandible. No tenderness to palpation. ENT: Mucous membranes pink and moist. CARDIOVASCULAR: Regular rate and rhythm. RESPIRATORY: No accessory muscle use. Clear to auscultation. Breath sounds equal bilaterally. PSYCHIATRIC: Appropriate mood and affect; insight and judgment normal. <Simran Hawthorne - 08/25/18 13:05> Assessment and Plan - Assessment (1) Mandibular abscess Code(s): M27.2 - Inflammatory conditions of jaws Status: Acute (2) Facial cellulitis Code(s): L03.211 - Cellulitis of face Status: Acute (3) Nutrition, metabolism, and development symptoms Code(s): R63.8 - Other symptoms and signs concerning food and fluid intake Status: Acute (4) DVT prophylaxis Status: Acute <Jaylen Roberto - 08/25/18 21:55> (1) Mandibular abscess Code(s): M27.2 - Inflammatory conditions of jaws Status: Acute Plan: Failed outpatient antibiotics with penicillin prior to presentation to the hospital IV antibiotics: Unasyn 3 g IV every 6 hours -Received clindamycin x1 in the emergency department I&D today by IR Continue Toradol as needed for pain control Await wound culture results from face to further narrow treatment plan for outpatient (2) Facial cellulitis Code(s): L03.211 - Cellulitis of face Status: Acute Plan: Cellulitis improving on IV antibiotics (3) Nutrition, metabolism, and development symptoms Code(s): R63.8 - Other symptoms and signs concerning food and fluid intake Status: Acute Plan: Fluid: Patient able to tolerate PO. Electrolytes: Electrolytes within normal limits. Will continue to monitor and replete as necessary. Nutrition: Regular diet (4) DVT prophylaxis Status: Acute Plan: Patient low risk for DVT. Patient up ad nain. Dispo: pending wound cx results <Simran Hawthorne - 08/25/18 13:02> - Attending Attestation Pt. examined independently by me and case discussed with resident physicians. I have read the above note and agree with the assessment and plan as discussed with me. I was involved in all medical decision making for this patient. Jaylen Roberto MD <Jaylen Roberto - 08/25/18 21:55>
--- NOTE | 2018-08-25 13:25 | US ---
EXAM DATE: 08/25/2018 12:00 AM EDT AGE/SEX: 28 years / Male INDICATIONS: Right jaw abscess. CLINICAL DATA: This is the patient's subsequent encounter. Patient reports that signs and symptoms h ave been present for 1 week and indicates a pain score of 7/10. MEDICAL/SURGICAL HISTORY: . Right jaw swelling. None. COMPARISON: No prior exams available for comparison. FLUID: Total volume of 5 cc of Bloody and purulent fluid was removed. Fluid was sent to lab for ordered stud ies. Post procedure scanning reveals no hematoma or other complication. . . TECHNIQUE: Ultrasound guidance for needle aspiration. Aspiration. The risks, benefits and alternatives to the procedure were explained and verbal and written consent w as obtained. The site was prepped in sterile fashion. Full sterile technique was used, including ca p, mask, sterile gloves and gown and a large sterile sheet. Hand hygiene and 2% chlorhexidine and/or betadine/alcohol prep was utilized per protocol for cutaneous antisepsis. The skin and subcutaneous tissues were infiltrated with local anesthetic solution. Sterile gel and sterile probe cover were u tilized for ultrasound guidance. With the patient on the ultrasound table, ultrasound imaging was used to select the most appropriate approach for aspiration. A dermatotomy was made with an 11 blade scalpel. An 18-gauge needle was int roduced to the collection and a small volume of purulent fluid was aspirated. CONCLUSION: Uncomplicated ultrasound-guided right jaw abscess aspiration as described. The fluid was sent for requested evaluation. Electronically signed by: Richie Brunner MD 08/25/2018 1:24 PM EDT
[2018-08-26] MEDS: Famotidine 20 MG Tablet PO SCH (08:20)
[2018-08-26 08:58] VITALS: RESP 16
--- NOTE | 2018-08-26 11:50 | P.PNFP ---
Subjective Interval history: No problems or pain. Denies fevers/chills. Eating well. Ready to go home today. <Simran Hawthorne N - 08/26/18 11:50> Results - Labs Result diagrams: 08/24/18 03:50 08/24/18 04:20 <Jaylen Rboerto - 08/26/18 15:49> - Imaging Impressions Needle Aspiration US 08/25/18 00:00 CONCLUSION: Uncomplicated ultrasound-guided right jaw abscess aspiration as described. The fluid was sent for requested evaluation. <Po Hawthorneana N - 08/26/18 11:50> Physical Exam Vital signs: Vital Signs 08/25/18 15:49 08/25/18 20:00 08/26/18 00:00 Temperature 98.2 F 98.6 F 97.9 F Pulse Rate 69 74 69 Respiratory Rate 16 18 16 Blood Pressure 122/68 128/68 132/87 Pulse Oximetry 96 98 96 08/26/18 04:00 08/26/18 08:00 08/26/18 11:59 Temperature 98 F 97.4 F L 98.6 F Pulse Rate 66 60 70 Respiratory Rate 14 16 16 Blood Pressure 128/90 137/85 125/67 Pulse Oximetry 98 99 96 Intake & Output 08/25/18 08/26/18 08/26/18 18:59 06:59 18:59 Intake Total 100 / 100 580 / 580 Balance 100 / 100 580 / 580 Weight 93.4 kg Intake: IV 100 / 100 100 / 100 Unasyn Inj 3 GM In NS Inj 100 100 / 100 100 / 100 ML @ 200 mls/hr IV.SIG Q6HR [facility] Rx#:[id number] Oral 480 / 480 Other: # Voids 2 Date of Last Bowel Movement 08/18/18 08/25/18 <Jaylen Roberto - 08/26/18 15:49> Vital Signs 08/25/18 15:49 08/25/18 20:00 08/26/18 00:00 Temperature 98.2 F 98.6 F 97.9 F Pulse Rate 69 74 69 Respiratory Rate 16 18 16 Blood Pressure 122/68 128/68 132/87 Pulse Oximetry 96 98 96 08/26/18 04:00 08/26/18 08:00 Temperature 98 F 97.4 F L Pulse Rate 66 60 Respiratory Rate 14 16 Blood Pressure 128/90 137/85 Pulse Oximetry 98 99 Intake & Output 08/25/18 08/26/18 08/26/18 18:59 06:59 18:59 Intake Total 100 / 100 580 / 580 Balance 100 / 100 580 / 580 Weight 93.4 kg Intake: IV 100 / 100 100 / 100 Unasyn Inj 3 GM In NS Inj 100 100 / 100 100 / 100 ML @ 200 mls/hr IV.SIG Q6HR [facility] Rx#:[id number] Oral 480 / 480 Other: # Voids 2 Date of Last Bowel Movement 08/18/18 08/25/18 <ChristophPoSimran N - 08/26/18 11:50> Narrative: GENERAL: Healthy-appearing young male sitting in bed in no obvious distress. SKIN: Warm and dry. Intact. No obvious erythema. HEAD: 4-6 cm of firmness under the skin over the right mandibe. No fluctuance noted. No tenderness to palpation. ENT: Mucous membranes pink and moist. CARDIOVASCULAR: Regular rate. RESPIRATORY: No accessory muscle use. PSYCHIATRIC: Appropriate mood and affect; insight and judgment normal. <Simran Hawthorne N - 08/26/18 11:50> Assessment and Plan - Assessment (1) Mandibular abscess Code(s): M27.2 - Inflammatory conditions of jaws Status: Acute (2) Facial cellulitis Code(s): L03.211 - Cellulitis of face Status: Acute (3) Nutrition, metabolism, and development symptoms Code(s): R63.8 - Other symptoms and signs concerning food and fluid intake Status: Acute (4) DVT prophylaxis Status: Acute <Jaylen Roberto - 08/26/18 15:49> (1) Mandibular abscess Code(s): M27.2 - Inflammatory conditions of jaws Status: Acute Plan: Clinda 450 Q6H PO for total of 8 days treatment OP S/p I&D today by IR 08/25 Not requiring pain medication (2) Facial cellulitis Code(s): L03.211 - Cellulitis of face Status: Acute Plan: Resolved. (3) Nutrition, metabolism, and development symptoms Code(s): R63.8 - Other symptoms and signs concerning food and fluid intake Status: Acute Plan: Fluid: Patient able to tolerate PO. Electrolytes: Electrolytes within normal limits. Will continue to monitor and replete as necessary. Nutrition: Regular diet (4) DVT prophylaxis Status: Acute Plan: Patient low risk for DVT. Patient up ad nain. Dispo: today with oral abx <Simran Hawthorne - 08/26/18 11:48> - Attending Attestation Patient case discussed with resident physicians I have independently examined the patient I have read the above note and agree with the assessment and plan as discussed with me I was involved in all medical decision making for this patient Jaylen Roberto MD <Jaylen Roberto - 08/26/18 15:49>
[2018-08-26 12:00] VITALS: BP 125/67; PULSE 70; TEMP 98.6; O2SAT 96
--- NOTE | 2018-08-26 19:39 | P.DS ---
Date of admission: 08/23/18 20:03 Primary care physician: PROVIDER NON STAFF Brief History from admission: Patient seen on rounds this morning with resident medical team. He states that his jaw pain and swelling has gotten much better throughout the night and he is able to open his mouth wider and eat without significant pain. He continues to feel a "hard lump" along the right jaw/mandible line. He denies fevers or chills, he denies difficulty with swallowing, he denies chest pain or shortness of breath. In summary, this is a 28-year-old male presenting with right-sided jaw pain and swelling for approximately 5 days prior to presentation. He was seen at [facility] 3 days prior to presentation was given tramadol and amoxicillin without improvement of his symptoms. The swelling and pain continued to increase and he presented to the emergency department at [facility] where a CT scan of his jaw shows a 2.3 cm abscess adjacent to the right mandible associated with extensive dental caries. He was started on IV Unasyn and treated with Toradol for his pain DS: Diagnosis - Discharge Diagnosis (1) Mandibular abscess Status: Acute (2) Facial cellulitis Status: Acute (3) Nutrition, metabolism, and development symptoms Status: Acute (4) DVT prophylaxis Status: Acute DS: Summary Hospital Course: 28-year-old otherwise healthy male who was admitted for right mandibular abscess with surrounding cellulitis, who had failed outpatient management with PO amoxicillin. CT scan of his jaw showed a 2.3 cm abscess adjacent to the right mandible associated with extensive dental caries. He was placed on IV unasyn, Toradol for pain and underwent I&D by IR. He responded quickly to IV antibiotics and antiinflammatory medication following drainage of the abscess. Patient was discharged in stable condition with prescription for Clindamycin and [place] for acute pain management. Recommended follow up with PCP in 1 week following discharge, in addition to dentist for extensive dental caries seen on imaging. - Time Spent with Patient Total time spent providing and/or coordinating discharge services: Greater than 30 minutes - Quality: VTE Deep Vein Thrombosis/Pulmonary Embolism Present on Admission: No Exam Vital signs: Vital Signs 08/25/18 20:00 08/26/18 00:00 08/26/18 04:00 Temperature 98.6 F 97.9 F 98 F Pulse Rate 74 69 66 Respiratory Rate 18 16 14 Blood Pressure 128/68 132/87 128/90 Pulse Oximetry 98 96 98 08/26/18 08:00 08/26/18 11:59 Temperature 97.4 F L 98.6 F Pulse Rate 60 70 Respiratory Rate 16 16 Blood Pressure 137/85 125/67 Pulse Oximetry 99 96 Intake & Output 08/26/18 08/26/18 08/27/18 06:59 18:59 06:59 Intake Total 580 / 580 Balance 580 / 580 Weight 93.4 kg Intake: IV 100 / 100 Unasyn Inj 3 GM In NS Inj 100 100 / 100 ML @ 200 mls/hr IV.SIG Q6HR FRANCINE Rx#:[id number] Oral 480 / 480 Other: # Voids 2 Date of Last Bowel Movement 08/25/18 Results Procedures completed during hospitalization: Fine needle aspiration of mandibular abscess by IR on 08/25/18 Labs on day of discharge: Preliminary micro results at discharge 08/25/18 11:00 Wound Culture - Preliminary Abscess - Face - Impressions ITS Impressions Soft Tissue Neck CT 08/23/18 17:01 CONCLUSION: 1. 2.3 cm abscess adjacent to the right mandible associated with extensive dental caries. There is overlying soft tissue swelling and mildly enlarged submandibular lymph node nodes. Soft Tissue Ultrasound 08/24/18 00:00 CONCLUSION: 1. Right perimandibular fluid collection corresponding to the abscess noted on recent CT. Needle Aspiration US 08/25/18 00:00 CONCLUSION: Uncomplicated ultrasound-guided right jaw abscess aspiration as described. The fluid was sent for requested evaluation. Discharge Plan - Discharge Disposition Patient Disposition: Discharge Home - Discharge Condition Condition: Stable - Discharge Order Discharge Orders: Discharge Order (Routine); Ordered 08/26/18 Ordered By: Simran Hawthorne - Discharge Details Anticipated Discharge Date: 08/26/18 - Physicians Team Primary Care Provider: NON STAFF,PROVIDER Attending Provider: Jaylen Roberto
== END 2018-08-26 15:51 | disposition home or self-care (01) ==
LOC: NEPD 14:23 → INTOOBSV 20:03 → NEDA 20:03 → OBSVTOIN 21:35 → NEDA 22:46 → NEPFCDU 22:47 → N04 08-25 22:27
PROVIDERS: ADMIT Family Medicine; ATTEND Family Medicine